=== PATIENT | female | born 1985 | race Caucasian/White ===

== ENCOUNTER 2017-03-23 15:34 | Outpatient (CLI) | payer MEDICARE, OTHER ==
--- NOTE | 2017-03-23 19:16 | RAD ---
THREE VIEWS OF THE LUMBAR SPINE 03/23/17 COMPARISON: 03/05/17 HISTORY: Status post lumbar spine surgery. FINDINGS: Postsurgical clips in right upper quadrant suggest prior cholecystectomy. Bilateral L5 and S1 pedicle screws are present with vertically oriented interlocking rods. There is an intervertebral disc device at the lumbosacral junction. There is anterolisthesis or L5 on S1 sunitha uring approximately 1.7 cm, not significantly changed. No acute osseous abnormality is seen. IMPRESSION: Stable postoperative changes within the lumbar spine. Stable 1.7 cm anterolisthesis of L5 on S1. POS: SUHAS
== END 2017-03-23 15:35 | disposition home or self-care (01) ==
LOC: TBSIIMAG 15:34
PROVIDERS: ATTEND Neurological Surgery
DX: M51.36 Other intervertebral disc degeneration, lumbar region (principal); M43.16 Spondylolisthesis, lumbar region; Z98.890 Other specified postprocedural states
CPT/HCPCS: 72100

== ENCOUNTER 2017-08-31 15:00 | Outpatient (CLI) | payer OTHER | END 2017-08-31 15:01 | disposition home or self-care (01) | LOC: BICRAD 15:00 | PROVIDERS: ATTEND Nurse Practitioner Family | DX: M47.816 Spondylosis without myelopathy or radiculopathy, lumbar region; M43.17 Spondylolisthesis, lumbosacral region; Z98.890 Other specified postprocedural states | CPT/HCPCS: 72100 ==

== ENCOUNTER 2018-09-01 15:27 | Outpatient (CLI) | payer OTHER | END 2018-09-01 15:28 | disposition home or self-care (01) | LOC: DTY/OP 15:27 | PROVIDERS: ATTEND Specialist | DX: Z01.818 Encounter for other preprocedural examination (principal); E66.01 Morbid (severe) obesity due to excess calories | CPT/HCPCS: 97802 ==

== ENCOUNTER 2018-10-07 11:00 | Inpatient (IN) | payer MEDICARE ==
[2018-10-06 15:30] VITALS: BMI 38.4
--- NOTE | 2018-10-06 22:04 | HP ---
HISTORY OF PRESENT ILLNESS: Sheela Moser is a 33-year-old female, scheduled for laparoscopic gastric bypass. She has reflux and sleeve is not appropriate. She has been through our bariatric seminar, seen our baby formula mixer and psychologist, and is felt to be an excellent candidate. She has a history of PTSD, anxiety, arthralgias, elevated cholesterol, and GERD. She is in need of bilateral knee replacement due to osteoarthritis. Hopefully, she can postpone this. She is currently taking levothyroxine, ropinirole, Lyrica, omeprazole, ranitidine, atorvastatin, and hydroxyzine. She understands the risks and benefits of procedure and consents. She has had EGD at [facility] in the recent months that was unremarkable. There is no history of a hiatal hernia. PAST SURGICAL HISTORY: Septoplasty, cholecystectomy, L5-S1 fusion in 2016, tubal ligation. Of note, I removed her gallbladder 15 to 16 years ago. PAST MEDICAL HISTORY: As noted above, depression; PTSD; GERD; anxiety; elevated cholesterol; osteoarthritis; history of peptic ulcer disease, on PPIs; history of reflux, on PPIs. The patient is seen by Dr. Whitehead and endorsed from Psychology as an appropriate candidate. She has seen her dietitian. She has seen her tools administrator and felt to be a good candidate without further evaluation necessary. Her echocardiogram from 09/22/2018 revealed normal LV function, 60% to 65% EF, mild tricuspid and mitral valve regurg, otherwise unremarkable. She was asymptomatic. EKG was normal. PHYSICAL EXAMINATION: VITAL SIGNS: Height 5 feet 2 inches, 210 pounds, 38 BMI. Blood pressure 116/69, pulse 76, temperature 98 degrees. HEAD, EYES, EARS, NOSE, AND THROAT: Unremarkable. LUNGS: Clear to auscultation. CARDIAC: Regular rate and rhythm without murmur or gallop. ABDOMEN: Soft and nontender. EXTREMITIES: Unremarkable. ASSESSMENT AND PLAN: Morbid obesity, 39 BMI on presentation, 214 pounds; currently 210 pounds, 38 BMI. She is compliant and endorses an appropriate candidate for laparoscopic gastric bypass. Risks and benefits have been reviewed. Questions answered. Job ID: [id number]
[2018-10-12] MEDS ORDERED: cefOXitin 2 GM VIAL ONE (06:21)
[2018-10-12] MEDS ORDERED: Sodium Chloride 0.9% 100 ML ONE (06:22)
[2018-10-12] MEDS ORDERED: Heparin 5,000 UNITS/ML VIAL ONE (06:22)
[2018-10-12] MEDS ORDERED: Scopolamine 1.5 mg/72 hour Patch ONE (06:23)
[2018-10-12] MEDS ORDERED: Ketorolac Tromethamine 30 MG/ML VIAL ONE (06:23)
[2018-10-12] MEDS ORDERED: Bupivacaine/Epinephrine 0.25% 30 ML VIAL ONE (06:39)
[2018-10-12] MEDS ORDERED: Fentanyl 100 MCG/2 ML VIAL ONE ×4 (07:19→12:03)
[2018-10-12] MEDS ORDERED: Midazolam HCl 2 mg/2 ml Vial ONE (07:31)
[2018-10-12] MEDS ORDERED: Ondansetron HCl/PF 4 MG/2 ML Vial IVP PRN (11:18)
[2018-10-12] MEDS ORDERED: Promethazine HCl 25 MG/ML VIAL SLOW IVP PRN (11:18)
[2018-10-12] MEDS ORDERED: Meperidine HCl/PF 25 MG/ML VIAL SLOW IVP PRN (11:18)
[2018-10-12] MEDS ORDERED: Promethazine HCl 25 MG/ML VIAL IM PRN (11:18)
[2018-10-12] MEDS ORDERED: Meperidine HCl/PF 25 MG/ML VIAL ONE (11:22)
[2018-10-12] MEDS ORDERED: diphenhydrAMINE 50 MG/ML VIAL IVP PRN (11:46)
[2018-10-12] MEDS ORDERED: hydrALAZINE 20 MG/ML VIAL SLOW IVP PRN (11:46)
[2018-10-12] MEDS ORDERED: Morphine 2 MG/ML SYRINGE SLOW IVP PRN (11:46)
[2018-10-12] MEDS ORDERED: Morphine 4 MG/ML VIAL SLOW IVP PRN (11:46)
[2018-10-12] MEDS ORDERED: clonazePAM 1 MG TAB PO PRN (11:51)
[2018-10-12] MEDS ORDERED: Sodium Chloride 0.9% (PF) 10 ML VIAL FS PRN (11:58)
--- NOTE | 2018-10-12 12:39 | OP ---
DATE OF PROCEDURE: 10/12/2018 PREOPERATIVE DIAGNOSES: Elevated cholesterol, gastroesophageal reflux disease, morbid obesity, 210 pounds and 38 BMI. POSTOPERATIVE DIAGNOSES: Elevated cholesterol, gastroesophageal reflux disease, morbid obesity, 210 pounds and 38 BMI. PROCEDURE PERFORMED: Laparoscopic Maureen-en-Y gastric bypass. ANESTHESIA: General. PARTS COUNTERMAN: Dr. Patel. Note, apex of the spleen superiorly. Small amount of bleeding, 4 to 500 mL controlled with Surgicel, Dory, and pressures. DESCRIPTION OF PROCEDURE: The patient was taken to the operating room, where under general anesthesia, abdomen was prepared with ChloraPrep and draped in routine fashion. Local anesthetic, 0.25% Marcaine with epinephrine, 60 mL volume, total volume used to infiltrate into the skin and subcutaneous tissue about each port site. Infraumbilical incision was made, pneumoperitoneum to 15 mmHg obtained with a Veress needle, replaced with a 5 port and laparoscope inserted. Bilateral far-lateral subcostal incision made and 5 port was placed. Left upper midclavicular abdominal incision was made. A 15-port placed on the left, 12-port placed on the right and a subxiphoid incision was made and Bayron liver retractor applied to flex the left lobe of the liver anteriorly. The omentum taken down split to the left of the falciform up to the transverse colon, reflected cephalad. Approximately, 25 cm from the ligament of Treitz, small bowel was divided with a STEPHEN white load stapler. Mesentery was tied the STEPHEN white load stapler. Hemostasis was gained with the cautery and clips, and Maureen limb devascularized about 4 cm and then measured to 100 cm length and then jejunojejunostomy between the biliary limb and Maureen limb proximally with a single fire of the STEPHEN white load stapler. A common enterotomy closed with 3 fires of the STEPHEN white load stapler. Mesenteric defect closed with 3-0 Vicryl [id number] sutures. Maureen limb was then carefully marched out from the jejunojejunostomy out to the devascularized Maureen limb, which had been devascularized about 4 cm using the LigaSure. This was then placed cephalad and the omentum reflected caudally and the patient placed in the reverse Trendelenburg position. Gastrohepatic ligament taken down adjacent to the lesser curvature and the lesser sac entered, and as all monitor instruments removed from the stomach, single fire of the STEPHEN blue load 45 cm stapler fired transversely for 4 to 5 cm from the gastroesophageal junction. Once this was completed, a gastrotomy was made and a 25 mm EEA stapler anvil placed, attached to a suture through the gastrotomy up to the gastric pouch. After the attached suture passed through a band passer 5 mm, passed in through the gastrotomy and directed up to the initially fired staple line in the stomach. Once this was in proper position at adjacent staple line, a small opening was made with the cutting current cautery. I then passed the anvil out grasping the suture, removing the anvil pulling the anvil out through the gastric pouch. At this point, the gastrotomy was closed with 2 fires of the STEPHEN blue load stapler. Stomach was then partitioned cephalad to the patient's left about angle of His with single serial fire of the blue load stapler. In doing so, there was small bowel bleeding from the apex of the spleen, this was controlled with cautery, Surgicel and a Ray-Roney gauze pressure applied held for 5 minutes and good hemostasis noted. The Ray-Roney left in place at this time. At this point, the Maureen limb was then opened along the devascularized segment antimesenteric and a 35 mm EEA stapler applied, advanced to the antimesenteric border of the small bowel advancing the anvil out of the small bowel and advancing the post of the antimesenteric small bowel and attaching it to the anvil. This was then approximated within the torque fire range and the anastomosis was completed, loosening the anvil, removing the stapler. Good anastomosis was palpated. Devascularized segment of the Maureen limb then divided with a STEPHEN white load stapler and removed. Then, we placed 3 sutures of 3-0 Vicryl seromuscular proximally jejunum to the gastric wall, left posterolateral, left anterolateral, and right anterolateral. Once this was completed, Anesthesia placed an OG tube, placed into the gastric pouch, visualized laparoscopically. Filled the gastrojejunostomy with air, placed an intestinal clamp on the intestinal outlet noting absence of any leak. Good hemostasis noted. At this point, attention was then turned to the spleen. This area was irrigated. Good hemostasis was noted. The Ray-Roney was removed. Dory sprayed around the splenic tip and another Surgicel applied and good hemostasis noted. Irrigant removed, aspirated, and a 15 mm port site closed with [id number] sutures of 0 Vicryl, GraNee needle, and transabdominal wall fixation. Irrigant and pneumoperitoneum were evacuated. All instruments were removed after the liver retractor was removed and good hemostasis noted, and all skin incisions were approximated with subdermal 4-0 Monocryl and [place] glue applied. The patient tolerated the procedure well. Job ID: [id number]
[2018-10-12] MEDS ORDERED: Dexamethasone 20 MG/5 ML VIAL ONE (13:37)
[2018-10-12] MEDS ORDERED: Glycopyrrolate 0.2 MG/ML 5 ML SYRINGE ONE (13:37)
[2018-10-12] MEDS ORDERED: Rocuronium Bromide 10 MG/ML (10ML VIAL) ONE (13:37)
[2018-10-12] MEDS ORDERED: Ondansetron PF 4 MG/2 ML Vial ONE (13:37)
[2018-10-12] MEDS ORDERED: PROPOFOL 200 MG/20 ML VIAL ONE (13:37)
[2018-10-12 15:59] LABS: #Lymphocytes 0.5 thou/uL (1.20-3.40); #Monocytes 0.1 thou/uL (0.11-0.59); #Neutrophils 12.1 thou/uL (1.40-6.50); %Lymphocytes 4.2 % (21.0-51.0); %Monocytes 1.1 % (0.0-10.0); %Neutrophils 94.7 % (42.0-75.0); Hemoglobin 12.4 g/dL (12.0-16.0); Mean Corpuscular HGB CONC 33.8 g/dL (32.0-36.0); Mean Corpuscular Hemoglobin 30.7 pg (27.0-31.0); Mean Corpuscular Volume 90.8 fL (78.0-98.0); Mean Platelet Volume 7.5 fL (7.4-10.4); Platelet Count 299 thou/uL (130-400); RBC Distribution Width 11.4 % (11.5-14.5); Red Blood Cell (RBC) Count 4.05 mill/uL (4.20-5.40); White Blood Cell (WBC) Count 12.8 thou/uL (4.8-10.8)
[2018-10-12] MEDS: Acetaminophen 1,000 MG in Premix Bag 1 BAG IVPB SCH ×2 (16:00→16:08)
[2018-10-12] MEDS: Ketorolac Tromethamine 30 MG/ML VIAL IVP SCH ×2 (16:00→17:07)
[2018-10-12] MEDS: Lactated Ringer's 1,000 ML IV SCH ×2 (16:01→20:39)
[2018-10-12] MEDS: Hydrocodone-Acetamin 15 ML UDCUP PO PRN ×2 (16:08→20:37)
[2018-10-12 20:11] LABS: #Lymphocytes 0.7 thou/uL (1.20-3.40); #Monocytes 0.3 thou/uL (0.11-0.59); #Neutrophils 10.7 thou/uL (1.40-6.50); %Basophils 0.2 % (0.0-1.0); %Eosinophils 0.2 % (0.0-10.0); %Lymphocytes 5.9 % (21.0-51.0); %Monocytes 2.4 % (0.0-10.0); %Neutrophils 91.3 % (42.0-75.0); Hemoglobin 11.5 g/dL (12.0-16.0); Mean Corpuscular HGB CONC 33.6 g/dL (32.0-36.0); Mean Corpuscular Hemoglobin 30.6 pg (27.0-31.0); Mean Corpuscular Volume 91.1 fL (78.0-98.0); Mean Platelet Volume 7.6 fL (7.4-10.4); Platelet Count 278 thou/uL (130-400); RBC Distribution Width 11.3 % (11.5-14.5); Red Blood Cell (RBC) Count 3.75 mill/uL (4.20-5.40); White Blood Cell (WBC) Count 11.7 thou/uL (4.8-10.8)
[2018-10-12] MEDS ORDERED: rOPINIRole HCl 1 MG TAB PO SCH (21:00)
[2018-10-13] MEDS: Acetaminophen 1,000 MG in Premix Bag 1 BAG IVPB SCH ×2 (00:15→05:24)
[2018-10-13] MEDS: Ondansetron PF 4 MG/2 ML Vial IVP PRN ×3 (00:16→16:42)
[2018-10-13] MEDS: Ketorolac Tromethamine 30 MG/ML VIAL IVP SCH ×3 (00:16→12:16)
[2018-10-13] MEDS: Lactated Ringer's 1,000 ML IV SCH ×2 (05:24→17:37)
[2018-10-13 06:26] LABS: #Lymphocytes 1.8 thou/uL (1.20-3.40); #Monocytes 0.5 thou/uL (0.11-0.59); #Neutrophils 6.9 thou/uL (1.40-6.50); %Basophils 0.2 % (0.0-1.0); %Eosinophils 0.2 % (0.0-10.0); %Lymphocytes 19.5 % (21.0-51.0); %Monocytes 5.6 % (0.0-10.0); %Neutrophils 74.5 % (42.0-75.0); Hemoglobin 10.1 g/dL (12.0-16.0); Mean Corpuscular HGB CONC 34.1 g/dL (32.0-36.0); Mean Corpuscular Hemoglobin 30.8 pg (27.0-31.0); Mean Corpuscular Volume 90.3 fL (78.0-98.0); Mean Platelet Volume 7.9 fL (7.4-10.4); Platelet Count 264 thou/uL (130-400); RBC Distribution Width 11.3 % (11.5-14.5); Red Blood Cell (RBC) Count 3.29 mill/uL (4.20-5.40); White Blood Cell (WBC) Count 9.3 thou/uL (4.8-10.8)
[2018-10-13 06:47] LABS: Anion Gap 11 mmol/L (10-20); BUN (Urea Nitrogen) 5 mg/dL (7.0-18.7); Calc. Creatinine Clearance 199 mL/min (70-130); Calcium 8.4 mg/dL (7.8-10.44); Carbon Dioxide 25 mmol/L (22-29); Chloride 109 mmol/L (98-107); Estimated GFR-MDRD Greater than 90; Glucose 113 mg/dL (70-105); Potassium 3.6 mmol/L (3.5-5.1); Sodium 141 mmol/L (136-145)
[2018-10-13] MEDS ORDERED: Pantoprazole 40 MG VIAL IVP SCH (09:00)
[2018-10-13] MEDS ORDERED: Enoxaparin Sodium 40 MG/0.4 ML SYRINGE SC SCH (09:00)
[2018-10-13] MEDS: Hydrocodone-Acetamin 15 ML UDCUP PO PRN ×2 (09:16→16:42)
[2018-10-13 11:35] VITALS: BP 97/56; TEMP 98.1
[2018-10-13] MEDS ORDERED: Acetaminophen 650 MG/20.3 ML UDCUP PO PRN (13:21)
--- NOTE | 2018-10-13 14:38 | PRG ---
DATE OF SERVICE: 10/13/2018 Sheela Moser is doing well, status post laparoscopic Maureen-en-Y gastric bypass. She did have some bleeding from the apex of the spleen, controlled with pressure and hemostatic agents. Postoperatively, her hemoglobin was checked and fell from 12 to 10.1. She has remained hemodynamically stable. She is tolerated her diet. Plan is to discharge home to resume her home medications including ropinirole, Klonopin, Trintellix, ranitidine, Lyrica, omeprazole, levothyroxine, Lipitor, cholecalciferol, p.r.n. Zofran, Tylenol elixir if that will suffice. Activity as tolerated. No lifting restrictions. Diet, advance as per protocol, bariatric clears, advance to pureed and GI soft per protocol post bariatric surgery. The patient will follow up in my office in 2 to 3 weeks. Job ID: [id number] MTDD
--- NOTE | 2018-10-14 03:26 | DIS ---
DATE OF ADMISSION: 10/12/2018 DATE OF DISCHARGE: 10/13/2018 DISCHARGE DIAGNOSES: Morbid obesity, Maureen-en-Y gastric bypass performed in this hospitalization. [place] of the spleen oozing intraoperatively, controlled with pressure and hemostatic agents. Admission hemoglobin 12. Discharge hemoglobin 10.1. Vital signs stable. The patient will continue her PPIs. DIET: Continue bariatric liquids and advance diet per protocol. ACTIVITY: No lifting restriction. Shower and bathe whenever. MEDICATIONS: Resume her home medications. Lortab elixir prescribed. FOLLOWUP: Follow up in my office in about 2 weeks. Job ID: [id number]
--- NOTE | 2018-10-14 05:59 | PQF ---
[employer] Carrier Driver Crystal Reports Winform Viewer DINESH NESBITT RICHARD D MD [id number] SURG [id number] CLINICAL DOCUMENTATION CLARIFICATION FORM: POST DISCHARGE Addendum to original discharge summary date: ____ Late entry note date: __ DATE: 10-14-2018 ATTN: Dov Kent Please exercise your independent, professional judgment in responding to the clarification form. Clinical indicators are provided on the bottom of this form for your review Can you please specify if the bleeding of the spleen is a perioperative complication. Please check appropriate box(s): [YES ] bleeding from the apex of the spleen is an incidental occurrence inherent in the surgical procedure [ ] bleeding from the apex of the spleen is a complication of the procedure [ ] Other [ ] Unable to determine [ ] Other diagnosis please specify: [ ] Unable to determine CLINICAL INDICATORS: Op note 10/[address] Willard Note, apex of the spleen superiorly, small amount of bleeding, 4 to 500 ml controlled with surgical, Dory,and pressures PN 10/[address] Willard Postoperatively her hemoglobin was checked and fell from 12 to 10.1. She has remained hemodynamically stable DS 10/[address] Willard Morbid Obesity, Maureen-en-Y gastric bypass performed in this hospitalization. [place] of the spleen oozing intraoperatively, controlled with pressure and hemostatic agents RISK FACTORS: Op note by Dr. Willard- Laparoscopic Maureen-en-Y gastric bypass Op note by Dr. Willard- Morbid Obesity BMI 38 TREATMENT: Op note by Dr. Willard 10/12- controlled with cautery, Surgicel, Dory and a Ray-Roney gauze pressure applied held for 5 minutes and good hemostasis noted Bupivacaine with epinephrine 30 ml -MAR 10/12. No postop hemodynamic compromise & no signicant drop in hemoglobin & no transfusion. (This form is maintained as a part of the permanent medical record) 2015 [employer] All Rights Reserved Annemarie [email or web address] [not provided] MTDD
== END 2018-10-13 17:12 | disposition home or self-care (01) | DRG 621 ==
LOC: SURG A 10-12 05:53 → SURG B 10-12 12:48 → SURG A 10-12 17:02 → SURG B 10-12 17:18
PROVIDERS: ADMIT Specialist; ATTEND Specialist
PROC: 0D164ZA Bypass Stomach to Jejunum, Percutaneous Endoscopic Approach (ICD-10-PCS; principal; 2018-10-12)
DX: E66.01 Morbid (severe) obesity due to excess calories (principal); E78.00 Pure hypercholesterolemia, unspecified; K21.9 Gastro-esophageal reflux disease without esophagitis; Z68.38 Body mass index [BMI] 38.0-38.9, adult; Z88.8 Allergy status to other drugs, medicaments and biological substances
CPT/HCPCS: 36415; 80048; 85025; 86850; 86900; 86901; C9113; J0131; J0694; J1100; J1644; J1650; J1885; J2175; J2250; J2270; J2405; J2704; J3010; J3490

== ENCOUNTER 2018-10-16 02:52 | Inpatient (IN) | payer MEDICARE, OTHER ==
[2018-10-16 03:23] LABS: Bilirubin Negative (Negative); Blood, Urine Negative (Negative); Clarity CLEAR (Clear); Glucose, Urine (Dipstick) Negative (Negative); Leukocyte Negative (Negative); Nitrite Negative (Negative); Protein, Urine (Dipstick) Negative (Neg-Trace); Specific Gravity, Urine 1.013 (1.002-1.036); pH, Urine 8.5 (5.0-9.0)
[2018-10-16] MEDS ORDERED: Morphine 4 MG/ML VIAL ONE (03:23)
[2018-10-16] MEDS ORDERED: Ondansetron PF 4 MG/2 ML Vial ONE ×4 (03:23→12:03)
[2018-10-16 03:49] LABS: #Eosinphils 0.1 thou/uL (0.0-0.7); #Lymphocytes 0.8 thou/uL (1.20-3.40); #Monocytes 0.3 thou/uL (0.11-0.59); #Neutrophils 8.9 thou/uL (1.40-6.50); %Basophils 0.3 % (0.0-1.0); %Eosinophils 0.5 % (0.0-10.0); %Lymphocytes 7.6 % (21.0-51.0); %Monocytes 2.6 % (0.0-10.0); Hemoglobin 10.6 g/dL (12.0-16.0); Mean Corpuscular HGB CONC 33.9 g/dL (32.0-36.0); Mean Corpuscular Hemoglobin 30.5 pg (27.0-31.0); Mean Platelet Volume 7.6 fL (7.4-10.4); Platelet Count 321 thou/uL (130-400); RBC Distribution Width 11.2 % (11.5-14.5); Red Blood Cell (RBC) Count 3.49 mill/uL (4.20-5.40)
[2018-10-16 04:14] LABS: ALT (SGPT) 67 U/L (8-55); AST (SGOT) 54 U/L (5-34); Albumin 3.2 g/dL (3.5-5.0); Anion Gap 14 mmol/L (10-20); BUN (Urea Nitrogen) 7 mg/dL (7.0-18.7); Bilirubin, Total 0.7 mg/dL (0.2-1.2); Calc. Creatinine Clearance 0 mL/min (70-130); Calcium 8.2 mg/dL (7.8-10.44); Carbon Dioxide 17 mmol/L (22-29); Chloride 108 mmol/L (98-107); Estimated GFR-MDRD Greater than 90; Globulin 2.2 g/dL (2.4-3.5); Glucose 118 mg/dL (70-105); Lipase 9 U/L (8-78); Potassium 3.3 mmol/L (3.5-5.1); Protein, Total 5.4 g/dL (6.0-8.3); Sodium 136 mmol/L (136-145)
[2018-10-16] MEDS ORDERED: Fentanyl 100 MCG/2 ML VIAL ONE ×3 (04:17→07:40)
[2018-10-16 04:20] LABS: Alkaline Phosphatase 102 U/L (40-150)
[2018-10-16] MEDS ORDERED: Piperacillin/Tazobactam 4.5 GM VIAL ONE (04:32)
[2018-10-16] MEDS ORDERED: Sodium Chloride 0.9% 100 ML ONE (04:32)
[2018-10-16] MEDS ORDERED: Bupivacaine HCl 0.5%/Epinephrine 1:200,000/PF 30 ml Vial ONE (04:53)
[2018-10-16] MEDS ORDERED: Bupivacaine/Epinephrine 0.25% 30 ML VIAL ONE (04:53)
[2018-10-16] MEDS ORDERED: Midazolam HCl 2 mg/2 ml Vial ONE (05:23)
[2018-10-16] MEDS ORDERED: Meperidine HCl/PF 25 MG/ML VIAL ONE (07:31)
[2018-10-16] MEDS ORDERED: Dexamethasone 4 mg/ml Vial ONE (07:36)
[2018-10-16] MEDS ORDERED: hydrALAZINE 20 MG/ML VIAL SLOW IVP PRN (07:36)
[2018-10-16] MEDS ORDERED: diphenhydrAMINE 50 MG/ML VIAL IVP PRN ×2 (07:36→08:01)
[2018-10-16] MEDS ORDERED: HYDROmorphone 2 MG/ML VIAL SLOW IVP PRN (07:42)
[2018-10-16] MEDS ORDERED: Promethazine HCl 25 MG/ML VIAL IM PRN ×2 (07:42→08:01)
[2018-10-16] MEDS ORDERED: Promethazine HCl 25 MG/ML VIAL SLOW IVP PRN (07:42)
[2018-10-16] MEDS ORDERED: Ondansetron HCl/PF 4 MG/2 ML Vial IVP PRN (07:42)
[2018-10-16] MEDS ORDERED: Meperidine HCl/PF 25 MG/ML VIAL SLOW IVP PRN (07:42)
[2018-10-16] MEDS ORDERED: Ondansetron PF 4 MG/2 ML Vial IVP PRN ×2 (07:43→08:01)
[2018-10-16] MEDS ORDERED: Ondansetron ODT 8 MG TAB SL PRN (07:43)
[2018-10-16] MEDS ORDERED: Acetaminophen 1,000 MG in Premix Bag 1 BAG IVPB SCH (07:45)
--- NOTE | 2018-10-16 07:55 | HP ---
HISTORY OF PRESENT ILLNESS: Sheela Moser is a 33-year-old female presents to the emergency room, 10/16/2018 after undergoing 10/12/2018 routine laparoscopic gastric bypass. The patient's gastric bypass went well, although she did have some bleeding from the apex of the spleen, requiring a Ray-Roney to be entered and pressure held and hemostatic agents applied. Postoperatively, the patient was discharged home 10/13/2018. Her hemoglobin had dropped from 12.4 to 10.1 by discharge, but today it is 10.6. The patient was sent home on Lortab Elixir, on bariatric clear liquids. She reports that she had expected postoperative pain, but last night her pain became more severe and she developed vomiting. She presented to the emergency room. Dr. Polk evaluated her. Her white count is 10, hemoglobin 10.6. Her differential is unremarkable. Sodium 136, potassium 3.3, carbon dioxide 17, creatinine 0.53. Her respiratory rate is 16 to 18, heart rate 68 to 72, blood pressure 120/68. The patient underwent a CAT scan of her abdomen and pelvis, read by [facility] and the report reads that there is an 8 x 3 x 3 cm fluid collection within the left upper quadrant perisplenic region compatible with an anastomotic breakdown in this patient and a leak. There is significant stool in the colon. There is dilatation of the jejunal limb/Maureen limb measuring up to 4 cm with wall thickening suggesting possible obstruction is read out. The patient was noted to have significant constipation. ALLERGIES: REGLAN SOCIAL HISTORY: Tobacco, none. Alcohol, none. PAST MEDICAL HISTORY: PTSD, GERD, anxiety, elevated cholesterol, osteoarthritis, peptic ulcer disease and reflux on PPI, history of prior gastric bypass. She had preoperative cardiac assessment that was normal, normal EF. PAST SURGICAL HISTORY: Septoplasty, cholecystectomy, L5-S1 fusion, tubal ligation (I had performed a cholecystectomy 15 years ago). REVIEW OF SYSTEMS: Noncontributory. PHYSICAL EXAMINATION: VITAL SIGNS: Respiratory rate 18, blood pressure 125/68, heart rate 72. HEAD, EARS, EYES, NOSE, AND THROAT: Unremarkable. LUNGS: Clear to auscultation. CARDIAC: Regular rate and rhythm without murmur or gallop. ABDOMEN: Soft. Well-healed laparoscopic incisions. Tenderness in the left upper quadrant with mild guarding. EXTREMITIES: Unremarkable. ASSESSMENT AND PLAN: 1. Post gastric bypass with pain. CAT scan does not show definitive leak. There is no extraluminal contrast; however, there is some fluid collection and some thick thickening of the Maureen limb. Due to her sudden onset of pain last night and her discomfort now, plan would be for a diagnostic laparoscopy, and procedure is indicated. Would place a central line. Would hydrate her. If she is demonstrated to have a leak, would plan placement of a G-tube in her gastric remnant and a drain. 2. Other medical problems as noted above. Job ID: [id number]
--- NOTE | 2018-10-16 07:57 | RAD ---
PORTABLE CHEST: HISTORY: Central line. Patient in PACU. FINDINGS: The lungs are clear. The heart and mediastinum are unremarkable for this projection. A central line appears to have been placed through the left subclavian. This line crosses the midlin e and the tip of the line overlies the right upper chest, presumably within the right subclavian vein . No pneumothorax or acute process. IMPRESSION: Central line crosses the midline and overlies the right upper chest, presumably within the right subc lavian vein. POS: OFF
[2018-10-16] MEDS ORDERED: Bisacodyl 10 MG SUPP PR SCH (08:00)
[2018-10-16] MEDS ORDERED: HYDROmorphone 2 MG/ML VIAL ONE (08:00)
[2018-10-16] MEDS ORDERED: fentaNYL Citrate/PF 2,000 MCG in Sodium Chloride 0.9% 60 ML IV PRN (08:01)
[2018-10-16] MEDS ORDERED: Zolpidem Tartrate 5 MG TAB PO PRN (08:01)
[2018-10-16] MEDS ORDERED: diphenhydrAMINE 50 MG/ML VIAL IM PRN (08:01)
[2018-10-16] MEDS ORDERED: Ketorolac Tromethamine 30 MG/ML VIAL IVP PRN (08:01)
[2018-10-16] MEDS ORDERED: diphenhydrAMINE 25 MG CAP PO PRN (08:01)
[2018-10-16] MEDS ORDERED: Naloxone HCl 0.4 mg/ml Vial IV PRN (08:01)
[2018-10-16] MEDS ORDERED: Communication Order-Pharmacy FS SCH (08:15)
--- NOTE | 2018-10-16 08:28 | CT ---
PRELIMINARY REPORT/[facility]/EMERGENTY AFTER-HOURS PROCEDURE CT Abdomen and Pelvis With Contrast EXAM DATE/TIME: 10/16/2018 3:47 AM CLINICAL HISTORY: 33 years old, female; Prior surgery; Patient HX: Er 5. PT presents to ED with report of abdominal nick n started tonight at 9pm with vomiting. PT reports had gastric bypass this past Wednesday. PT report pain since surgery reports worsening pain tonight. PT endorses pain to llq. PT has not had bowel movement since 2 days prior to surgery, per PT. Surgical history of cholecystectomy, laparoscop ic, tubal ligation. Gastric bypass 10/12/18; Additional info: *limited oral contrast, 100 ml of oral contrast used* TECHNIQUE: Imaging protocol: Axial computed tomography images of the abdomen and pelvis with intravenous contras t. Coronal reformatted images were created and reviewed. COMPARISON: No relevant prior studies available. FINDINGS: Pleural space: There is small LEFT pleural effusion. ABDOMEN: Liver: There are no focal liver lesions identified. Gallbladder and bile ducts: There has been a cholecystectomy. Pancreas: The pancreas appears normal. No ductal dilatation. Spleen: The spleen is normal. Adrenals: Normal. No mass. Kidneys and ureters: The kidneys appear normal. No hydronephrosis. Stomach and bowel: Patient is post gastric bypass surgery. There is an 8 x 3 x 3 cm fluid collection within the LEFT upper quadrant/perisplenic region compatible with anastomotic breakdown in this patie nt post recent gastric bypass surgery. There is nonspecific dilatation of the jejunal limb which extends inferiorly from the gastrojejunostomy with dilatation measuring up to 4 cm and wall thickenin g. This may represent ileus or obstruction. There is mild stool burden within the colon. Appendix: No evidence of appendicitis. PELVIS: Bladder: The bladder is normal. Reproductive: The uterus is normal. ABDOMEN and PELVIS: Intraperitoneal space: There is a small amount of free pelvic fluid present. Bones/joints: Patient is post L5 S1 surgical fusion with screws and rods. Soft tissues: Unremarkable. Vasculature: Normal. No abdominal aortic aneurysm. Lymph nodes: Normal. No enlarged lymph nodes. IMPRESSION: 1. There is an 8 x 3 x 3 cm fluid collection within the LEFT upper quadrant/perisplenic region compat ible with anastomotic breakdown in this patient post recent gastric bypass surgery. 2. Possible anastomosed jejunal limb obstruction versus ileus as above. THIS REPORT CONTAINS FINDINGS THAT MAY BE CRITICAL TO PATIENT CARE. The findings were verbally commun icated via telephone conference with BARTOLOME ORTIZ at 4:18 AM CDT on 10/16/2018. The findings were acknowledged and understood. Thank you for allowing us to participate in the care of your patient. Dictated and Authenticated by: Keyshawn Agrawal MD 10/16/2018 4:20 AM Central Time ([place] & [place]) FINAL REPORT CT ABDOMEN AND PELVIS WITH IV CONTRAST AND WITH ORAL CONTRAST: There is an extraluminal fluid and gas collection in the left upper quadrant in the left hemidiaphra gm consistent with anastomotic leak with confined collection/abscess as noted on the preliminary repo rt. There is dilatation of the brad limb of the gastric bypass and the findings are suspicious for obstru ction at the jejunal-jejunal anastomosis. This was also described on the preliminary report. Small bowel beyond this jejunal-jejunal anastomosis is normal caliber. I am in agreement with the preliminary report. POS: OFF
[2018-10-16] MEDS ORDERED: PREGABALIN PO SCH (09:00)
[2018-10-16 09:34] VITALS: BMI 38.4
[2018-10-16] MEDS: Pregabalin 75 MG CAP PO SCH ×4 (10:10→21:41)
[2018-10-16] MEDS: Levothyroxine Sodium 88 MCG TAB PO SCH (10:10)
[2018-10-16] MEDS: Acetaminophen 1,000 MG in Premix Bag 1 BAG IVPB SCH ×2 (11:07→18:15)
[2018-10-16] MEDS: Enoxaparin Sodium 40 MG/0.4 ML SYRINGE SC SCH (11:07)
[2018-10-16] MEDS: Pantoprazole 40 MG VIAL IVP SCH (11:08)
[2018-10-16] MEDS ORDERED: Iopamidol 370 76% 50 ML VIAL FS ONE (11:18)
[2018-10-16] MEDS ORDERED: ISOVUE-370 76%-LOCM 1 ML ONE (11:18)
[2018-10-16] MEDS ORDERED: Ketorolac Tromethamine 30 MG/ML VIAL IVP SCH (12:00)
[2018-10-16] MEDS ORDERED: Lidocaine 1% PF 5 ML VIAL ONE (12:03)
[2018-10-16] MEDS ORDERED: Dexamethasone 20 MG/5 ML VIAL ONE (12:03)
[2018-10-16] MEDS ORDERED: Rocuronium Bromide 10 MG/ML (10ML VIAL) ONE (12:03)
[2018-10-16] MEDS ORDERED: Glycopyrrolate 0.2 MG/ML 5 ML SYRINGE ONE (12:03)
[2018-10-16] MEDS ORDERED: PROPOFOL 200 MG/20 ML VIAL ONE (12:03)
[2018-10-16] MEDS ORDERED: Succinylcholine Chloride 20 MG/ML 10 ml SYRINGE FS ONE (12:03)
--- NOTE | 2018-10-16 13:47 | OP ---
DATE OF PROCEDURE: 10/16/2018 PREOPERATIVE DIAGNOSIS: Abdominal pain, status post Maureen-en-Y gastric bypass with normal white count, hemoglobin, normal vital signs. CAT scan suggested a fluid collection in left upper quadrant, read out as possible leak, although not certain. POSTOPERATIVE DIAGNOSIS: Normal postoperative findings. PROCEDURE PERFORMED: Diagnostic laparoscopy with evaluation of the gastrojejunostomy and the jejunojejunostomy. Gastrojejunostomy anastomosis checked under water insufflating air through an orogastric tube properly placed across the gastrojejunal anastomosis. Methylene blue inserted. No evidence of extravasation. Jejunojejunostomy evaluated patent air pushed across it. #19 Gold KIMBER drain in left upper quadrant. ROTO GRAVURE PRESS OPERATOR: Hakeem Qureshi MD ANESTHESIA: General anesthesia, local of 0.25% Marcaine with epinephrine 60 mL. DESCRIPTION OF PROCEDURE: The patient was taken to the operating room, where under general anesthesia, abdomen was prepared with ChloraPrep and draped in routine fashion. Local anesthetic was infiltrated in the skin and subcutaneous tissue about all the old laparoscopic port sites. These were opened and a 5-mm port placed infraumbilical, 5-mm port placed left upper quadrant midclavicular and a 12-mm port placed in right upper quadrant subcostal and 5 ports placed, otherwise. Bayron liver tractor placed through a subxiphoid old port site and properly positioned reflecting the anterior lobe of the liver anteriorly and reflecting the left lobe of the liver anteriorly. There was scant amount of brownish fluid in the left upper quadrant consistent with Surgicel and Dory used for hemostasis for the splenic apex bleeding, but no evidence of enteric material noted. The gastrojejunostomy was visualized, inspected and anesthesia placed an orogastric tube visualized laparoscopically, placed across gastrojejunostomy visualized in the Maureen limb. Intestinal clamp was placed across the small bowel and it was insufflated with air and there was no leak under water. Methylene blue was then used to insufflate this and it was well distended without leakage. #19 Gold KIMBER drain placed in the left upper quadrant near the gastrojejunostomy and brought out through the old 5 port site, left lateral subcostal and secured with 3-0 nylon, Mastisol and OpSite dressing. Jejunojejunostomy was inspected. There was no evidence of ischemia. There was no evidence of leakage. The Maureen limb was slightly distended, but air was passed across it into the jejunal outflow. Abdominal cavity was irrigated and irrigant evacuated. Good hemostasis was noted. All skin incisions were approximated with interrupted subdermal 4-0 Monocryl and [place] glue applied. Job ID: [id number]
[2018-10-16] MEDS: rOPINIRole HCl 1 MG TAB PO SCH ×2 (20:44→21:54)
[2018-10-17] MEDS: Acetaminophen 1,000 MG in Premix Bag 1 BAG IVPB SCH ×3 (00:25→12:11)
[2018-10-17 04:29] LABS: #Eosinphils 0.2 thou/uL (0.0-0.7); #Lymphocytes 1.9 thou/uL (1.20-3.40); #Monocytes 0.5 thou/uL (0.11-0.59); %Basophils 0.4 % (0.0-1.0); %Lymphocytes 19.8 % (21.0-51.0); %Monocytes 5.3 % (0.0-10.0); %Neutrophils 72.5 % (42.0-75.0); Hemoglobin 9.1 g/dL (12.0-16.0); Mean Corpuscular HGB CONC 33.2 g/dL (32.0-36.0); Mean Corpuscular Hemoglobin 30.4 pg (27.0-31.0); Mean Corpuscular Volume 91.7 fL (78.0-98.0); Mean Platelet Volume 7.5 fL (7.4-10.4); Platelet Count 274 thou/uL (130-400); RBC Distribution Width 11.6 % (11.5-14.5); Red Blood Cell (RBC) Count 2.98 mill/uL (4.20-5.40); White Blood Cell (WBC) Count 9.6 thou/uL (4.8-10.8)
[2018-10-17 04:53] LABS: Anion Gap 10 mmol/L (10-20); BUN (Urea Nitrogen) 4 mg/dL (7.0-18.7); Calc. Creatinine Clearance 193 mL/min (70-130); Calcium 8.5 mg/dL (7.8-10.44); Carbon Dioxide 25 mmol/L (22-29); Chloride 109 mmol/L (98-107); Estimated GFR-MDRD Greater than 90; Glucose 118 mg/dL (70-105); Potassium 3.9 mmol/L (3.5-5.1); Sodium 140 mmol/L (136-145)
[2018-10-17] MEDS ORDERED: MD-Gastroview 120 ML BOT ONE (11:01)
--- NOTE | 2018-10-17 11:11 | RAD ---
Upper GI series single column: 10/17/2018 HISTORY: 33-year-old female with postoperative pain after Maureen-en-Y gastric bypass surgery. TECHNIQUE: Gastrografin was given by mouth during intermittent fluoroscopy, both upright and recumbent. Eventual ly, a total of 30 mL of Gastrografin was given. A 1 hour and 15 minute delayed KUB was also obtained. The findings were discussed with the surgeon, Dr. Qureshi. FINDINGS: Gastrografin first reaches the small gastric pouch, then reaches the air-filled, mildly dilated maureen limb. Later, it preferentially refluxes into the mildly-moderately dilated duodenum. There is narrowing at three-way anastomosis between the maureen limb, duodenum, and interference jejunal limb, such that there is delayed contrast opacification of the rest of the jejunum. However, on the delayed KUB, most of the contrast material has exited the Maureen limb, stomach, and duo denum, and fills the rest of the nondilated jejunum and ileum, and has reached the mid transverse colon. There is no evidence of leakage. IMPRESSION: 1. Status post Maureen-en-Y gastric bypass surgery. 2. No leakage. 3. Stenosis at the three-way anastomosis, With preferential reflux into the duodenum, and delayed pas albertina into the rest of the the efferent jejunum. 4. However, eventually, the above resolves. No major complication.
--- NOTE | 2018-10-17 11:18 | PDOC.GSPN ---
Surgery Progress Note: Subj - Subjective Patient reports: no new complaints, tolerating liquids well Surgery Progress Note: Obj - Vital signs Vital signs: Vital Signs - Most Recent Temp Pulse Resp BP Pulse Ox 98.2 F 66 16 89/59 L 96 10/17/18 03:57 10/17/18 03:57 10/17/18 03:57 10/17/18 03:57 10/17/18 03:57 - Physical Exam General: no distress Cardiovascular: regular rate and rhythm Respiratory: clear to auscultation Abdomen: soft, nondistended, appropriately tender Wound: healing well Surgery Progress Note: Results - Labs Result Diagrams: 10/17/18 04:20 10/17/18 04:20 Lab results: Laboratory Results - last 24 hr 10/17/18 10/17/18 04:20 04:20 WBC 9.6 RBC 2.98 L Hgb 9.1 L Hct 27.3 L MCV 91.7 MCH 30.4 MCHC 33.2 RDW 11.6 Plt Count 274 MPV 7.5 Neutrophils % 72.5 Lymphocytes % 19.8 L Monocytes % 5.3 Eosinophils % 2.0 Basophils % 0.4 Neutrophils # 7.0 H Lymphocytes # 1.9 Monocytes # 0.5 Eosinophils # 0.2 Basophils # 0.0 Sodium 140 Potassium 3.9 Chloride 109 H Carbon Dioxide 25 Anion Gap 10 BUN 4 L Creatinine 0.63 Estimated GFR (MDRD) Greater than 90 Glucose 118 H Calcium 8.5 Surgery Progress Note: A/P - Problem (1) Morbid obesity Current Visit: No Code(s): E66.01 - MORBID (SEVERE) OBESITY DUE TO EXCESS CALORIES Status: Acute - Plan Plan: Swallow normal -clear liquids -Leave [facility] for now. -likely home tomorrow
[2018-10-17] MEDS: Levothyroxine Sodium 88 MCG TAB PO SCH (11:21)
[2018-10-17] MEDS: Enoxaparin Sodium 40 MG/0.4 ML SYRINGE SC SCH (11:21)
[2018-10-17] MEDS: Pregabalin 75 MG CAP PO SCH ×3 (11:22→20:27)
[2018-10-17] MEDS: Pantoprazole 40 MG VIAL IVP SCH (11:23)
[2018-10-17] MEDS: D5 1/2 NS w/20 mEq KCL 1,000 ML IV SCH (12:11)
[2018-10-17] MEDS: rOPINIRole HCl 1 MG TAB PO SCH (20:47)
[2018-10-17] MEDS ORDERED: clonazePAM 1 MG TAB PO PRN (22:12)
[2018-10-17] MEDS ORDERED: Atorvastatin Calcium 20 MG TAB PO SCH (22:15)
[2018-10-17] MEDS ORDERED: Atorvastatin Calcium 40 MG TAB ONE (23:13)
[2018-10-17] MEDS ORDERED: Atorvastatin Calcium 20 MG TAB ONE (23:16)
[2018-10-18] MEDS: D5 1/2 NS w/20 mEq KCL 1,000 ML IV SCH (01:56)
[2018-10-18] MEDS ORDERED: Ondansetron ODT 4 MG TAB PO PRN (08:13)
[2018-10-18] MEDS ORDERED: Acetaminophen 650 MG/20.3 ML UDCUP PO PRN ×2 (08:13→08:15)
[2018-10-18] MEDS ORDERED: clonazePAM 1 MG TAB PO PRN ×2 (08:13→09:48)
[2018-10-18] MEDS ORDERED: Amoxicillin/Potassium Clav 500 MG TAB PO SCH ×2 (09:00)
[2018-10-18] MEDS ORDERED: Non-Formulary Item 1 EACH (Omeprazole [Omeprazole] 20 MG) PO SCH (09:00)
[2018-10-18] MEDS ORDERED: VORTIOXETINE HYDROBROMIDE PO SCH (09:00)
[2018-10-18] MEDS ORDERED: Non-Formulary Item 1 EACH (Cholecalciferol (Vitamin D3) [Vitamin D3] 1,000 UNIT) PO SCH (09:00)
[2018-10-18] MEDS: Levothyroxine Sodium 88 MCG TAB PO SCH (09:51)
[2018-10-18] MEDS: Enoxaparin Sodium 40 MG/0.4 ML SYRINGE SC SCH (09:52)
[2018-10-18] MEDS: Pregabalin 75 MG CAP PO SCH ×3 (09:52→20:24)
--- NOTE | 2018-10-18 10:22 | PRG ---
DATE OF SERVICE: 10/18/2018 SUBJECTIVE: Sheela Moser is doing well today. Her upper GI was normal yesterday. She is complaining of left upper quadrant pain, but no nausea or vomiting. She has been tolerating liquids since yesterday. Followup x-ray today reveals all the contrast Gastrografin to be in her colon. None has stagnated in her small bowel. She has had multiple bowel movements. OBJECTIVE: VITAL SIGNS: 98.3, 74, 99/65. LUNGS: Clear to auscultation. CARDIAC: Regular rate and rhythm without murmur or gallop. ABDOMEN: Soft and nontender except for minimal tenderness in left upper quadrant. LABORATORY DATA: Laboratories were normal yesterday, not repeated today. ASSESSMENT AND PLAN: Post bariatric surgery. No evidence of a leak. We will remove her drain today and plan discharge home later today or in the morning pending clinical course. Job ID: [id number]
--- NOTE | 2018-10-18 10:48 | RAD ---
SUPINE ABDOMEN: Date: 10/18/18 INDICATION: Abdominal pain. Follow-up upper GI performed yesterday. FINDINGS/IMPRESSION: Contrast now fills the entire colon. No significant residual small bowel contrast. There is mild gas- filled dilatation of several loops of small bowel in the mid abdomen. POS: OFF
[2018-10-18] MEDS: Hydrocodone-Acetamin 15 ML UDCUP PO PRN ×3 (11:10→20:23)
[2018-10-18] MEDS ORDERED: Famotidine 20 MG TAB PO SCH (21:00)
[2018-10-18] MEDS ORDERED: Non-Formulary Item 1 EACH (Ranitidine Hcl [Ranitidine Hcl] 150 MG) PO SCH (21:00)
[2018-10-18] MEDS ORDERED: Atorvastatin Calcium 20 MG TAB PO SCH ×2 (21:00)
[2018-10-18] MEDS: rOPINIRole HCl 1 MG TAB PO SCH (22:13)
[2018-10-19] MEDS: Hydrocodone-Acetamin 15 ML UDCUP PO PRN ×2 (00:42→08:04)
[2018-10-19 04:35] VITALS: BP 103/62; TEMP 98.4
[2018-10-19] MEDS: Pregabalin 75 MG CAP PO SCH (08:03)
[2018-10-19] MEDS: Levothyroxine Sodium 88 MCG TAB PO SCH (08:04)
[2018-10-19] MEDS: Enoxaparin Sodium 40 MG/0.4 ML SYRINGE SC SCH (08:04)
[2018-10-19] MEDS ORDERED: VORTIOXETINE HYDROBROMIDE PO SCH (09:00)
--- NOTE | 2018-10-19 09:39 | PRG ---
DATE OF SERVICE: 10/19/2018 SUBJECTIVE: Ms. Moser is doing well today. She is tolerating her bariatric liquids. Her progression for bariatric diet was reviewed with her. She is to be on bariatric liquids for 2 weeks, then move to purees, then soft foods per protocol. She has this information, has gone through this education at home. OBJECTIVE: VITAL SIGNS: Temperature 98.4 degrees, pulse 77, blood pressure 103/62. LUNGS: Clear to auscultation. CARDIAC: Regular rate and rhythm without murmur or gallop. ABDOMEN: Soft, nontender. Surgical wounds look good. Dressing over her old drain site present. LABORATORY DATA: None. ASSESSMENT AND PLAN: Doing well. She can be discharged home today. Lortab Elixir has been provided to use as needed. She will change this with Tylenol when that suffices. Diet and activity as tolerated. No lifting restrictions. Bariatric diet per protocol advancement. Follow up in my office for appointment in the next week or two. Job ID: [id number]
--- NOTE | 2018-10-20 01:50 | DIS ---
DATE OF ADMISSION: 10/16/2018 DATE OF DISCHARGE: 10/19/2018 DISCHARGE DIAGNOSES: 1. Abdominal pain post laparoscopic Maureen-en-Y gastric bypass. 2. Morbid obesity, 210 pounds, 38 BMI. 3. History of reflux. HISTORY: A 33-year-old female attended our bariatric seminar, went through the bariatric program and preoperative evaluation and then was admitted on the day of surgery after undergoing laparoscopic Maureen-en-Y gastric bypass. During that procedure, she had some bleeding at the apex of the spleen, controlled with pressure with Ray-Roney and hemostatic agents. Postoperatively, the patient was discharged home the next day with a stable hemoglobin and vital signs. She was discharged home on 10/13/2018. She reported to the emergency room on 10/16/2018, complaining of abdominal pain. In the emergency room, she had a CAT scan with contrast that revealed a fluid collection and radiologist read this out as a possible leak, although there was no extraluminal contrast. When I saw her, vital signs were stable. Her white count was normal. Her hemoglobin stable. Her abdominal exam revealed tenderness in the left upper quadrant. The remainder of the abdomen was soft. However, CAT scan did reveal some slight distention of her Maureen limb. Given these findings and her pain, which seemed to have acutely worsened even though it was appreciated that she did have constipation, the patient underwent laparoscopy. During that laparoscopy, the patient's orogastric tube was placed. This stomach distended with air and there was no evidence of leakage. Methylene blue was then used to distend the gastric pouch and gastrojejunostomy and again, there was no leakage. There was no evidence of inflammatory fluid. There was some Surgicel colored brownish fluid which was evacuated, but no inflammatory changes otherwise, the gastric remnant looked healthy. There was no bleeding. I then evaluated the Maureen limb. The Maureen limb was slightly distended, but looking at good jejunojejunostomy there when manipulated passed easily into the outlet jejunum. A drain was left in place. Postoperatively, she was monitored on that Wednesday and on Wednesday morning, she underwent a swallow study that demonstrated delayed emptying of the Maureen limb, but it did empty well on delayed films. Followup x-ray the next day revealed contrast to completely have evacuated the small bowel and upper GI tract and only lie in the colon. The patient had multiple bowel movements. The patient's hemoglobin remained stable. She was weaned from her [employer] to oral analgesics and is now discharged home to resume her home medications. She was given a prescription for Lortab elixir 240 mL. She will interchange this with Tylenol as able. She will resume her home medication, ropinirole 2 mg at bedtime, Klonopin 1 mg t.i.d. p.r.n., Trintellix daily, ranitidine at bedtime, Lyrica t.i.d., Zofran as needed, omeprazole 20 mg a day, levothyroxine 88 mcg a day, hydrocodone elixir as needed, vitamin D3, atorvastatin, acetaminophen as needed. Diet and activity as tolerated. Her drain and central line were removed prior to discharge. Job ID: [id number]
== END 2018-10-19 09:52 | disposition home or self-care (01) | DRG 941 ==
LOC: ERS 02:52 → SDC 06:01 → SURG A 07:36
PROVIDERS: ADMIT Specialist; ATTEND Specialist
PROC: 0WJP4ZZ Inspection of Gastrointestinal Tract, Percutaneous Endoscopic Approach (ICD-10-PCS; principal; 2018-10-16)
DX: G89.18 Other acute postprocedural pain (principal); Z98.84 Bariatric surgery status; K21.9 Gastro-esophageal reflux disease without esophagitis; E78.00 Pure hypercholesterolemia, unspecified; M19.90 Unspecified osteoarthritis, unspecified site; F43.10 Post-traumatic stress disorder, unspecified; E66.01 Morbid (severe) obesity due to excess calories; Z68.38 Body mass index [BMI] 38.0-38.9, adult
CPT/HCPCS: 36415; 71045; 74018; 74177; 74245; 80048; 80053; 81003; 83605; 83690; 85025; 94760; 96365; 96375; 96376; C9113; J0131; J0670; J1100; J1170; J1650; J2001; J2175; J2250; J2270; J2405; J2543; J2704; J3010; J3480; J3490; J7121; Q0163; Q9963; Q9966; Q9967; Q9968

== ENCOUNTER 2019-02-18 20:56 | Emergency (ER) | payer MEDICARE, OTHER ==
[~2019-02-18 20:56] MED LIST: ISOVUE-370 76%-LOCM 1 ML ONE; Iopamidol 370 76% 50 ML VIAL FS ONE
[2019-02-18] MEDS ORDERED: Morphine 4 MG/ML VIAL ONE ×2 (22:03→22:50)
[2019-02-18] MEDS ORDERED: Ondansetron PF 4 MG/2 ML Vial ONE ×2 (22:03→22:50)
[2019-02-18 22:08] LABS: Bacteria/HPF None Seen HPF (None Seen); Bilirubin Negative (Negative); Blood, Urine 3+ (Negative); Clarity Turbid (Clear); Glucose, Urine (Dipstick) Normal (Negative); Leukocyte 25 Leu/uL (Negative); Mucous/LPF 1+ LPF (<2+); Nitrite Negative (Negative); Protein, Urine (Dipstick) 70 mg/dL (Neg-Trace); RBC/HPF Greater than 50 HPF (0-3); Urobilinogen Normal mg/dL (Less than 2)
[2019-02-18 22:19] LABS: ALT (SGPT) 21 U/L (8-55); AST (SGOT) 16 U/L (5-34); Albumin 4.2 g/dL (3.5-5.0); Alkaline Phosphatase 154 U/L (40-150); Anion Gap 10 mmol/L (10-20); BUN (Urea Nitrogen) 17 mg/dL (7.0-18.7); Bilirubin, Total 0.4 mg/dL (0.2-1.2); Calc. Creatinine Clearance 0 mL/min (70-130); Calcium 9.6 mg/dL (7.8-10.44); Carbon Dioxide 20 mmol/L (22-29); Chloride 109 mmol/L (98-107); Estimated GFR-MDRD 80; Globulin 2.9 g/dL (2.4-3.5); Glucose 107 mg/dL (70-105); Potassium 3.4 mmol/L (3.5-5.1); Protein, Total 7.1 g/dL (6.0-8.3); Sodium 136 mmol/L (136-145)
[2019-02-18 22:25] LABS: #Basophils 0.1 thou/uL (0.0-0.2); #Eosinphils 0.1 thou/uL (0.0-0.7); #Lymphocytes 2.5 thou/uL (1.20-3.40); #Monocytes 0.7 thou/uL (0.11-0.59); %Basophils 0.5 % (0.0-1.0); %Eosinophils 0.9 % (0.0-10.0); %Lymphocytes 17.2 % (21.0-51.0); %Monocytes 4.6 % (0.0-10.0); %Neutrophils 76.8 % (42.0-75.0); Hemoglobin 13.7 g/dL (12.0-16.0); Mean Corpuscular HGB CONC 34.3 g/dL (32.0-36.0); Mean Corpuscular Hemoglobin 29.9 pg (27.0-31.0); Mean Corpuscular Volume 86.9 fL (78.0-98.0); Mean Platelet Volume 8.2 fL (7.4-10.4); Platelet Count 303 thou/uL (130-400); Red Blood Cell (RBC) Count 4.58 mill/uL (4.20-5.40); White Blood Cell (WBC) Count 14.4 thou/uL (4.8-10.8)
--- NOTE | 2019-02-18 22:45 | CT ---
CT of abdomen and pelvis: 02/18/2019 COMPARISON: 10/16/2018 HISTORY: Left lower quadrant pain TECHNIQUE: Axial CT imaging at 5 mm intervals from lung bases through pubic symphysis with IV and ora l contrast. Coronal reformatted imaging obtained. FINDINGS: The imaged lung bases are unremarkable. No free intraperitoneal air. Cholecystectomy clips are present. The liver, pancreas, spleen, adrenal glands, and right kidney are unremarkable. There is hydronephrosis on the left with a delayed nephrogram. There is hydroureter on the left as well, evidence of left-sided obstructive uropathy. There is an obstructing stone withi n the distal left ureter, best seen on axial image 69, measuring approximately 4 mm. There is a gastric suture line present. No evidence for bowel obstruction or bowel inflammatory ortiz e. The vascular structures of the abdomen/pelvis appear patent. No abdominal or pelvic lymphadenopathy is seen. Posterior postoperative fusion hardware is present at the lumbosacral junction. There is prominent fa cet hypertrophy bilaterally at the lumbosacral junction and there is 1 cm of anterolisthesis. No acute osseous abnormality is noted. IMPRESSION: Obstructive uropathy on the left secondary to a 4 mm distal obstructing left ureteral sto ne. Additional incidental findings as above.
[2019-02-18] MEDS ORDERED: Ketorolac Tromethamine 30 MG/ML VIAL ONE (22:50)
== END 2019-02-18 23:57 | disposition home or self-care (01) ==
LOC: ERS 20:56
DX: N13.2 Hydronephrosis with renal and ureteral calculous obstruction (principal); E03.9 Hypothyroidism, unspecified; E78.5 Hyperlipidemia, unspecified; F41.9 Anxiety disorder, unspecified; F31.9 Bipolar disorder, unspecified; F43.10 Post-traumatic stress disorder, unspecified; F17.210 Nicotine dependence, cigarettes, uncomplicated
CPT/HCPCS: 36415; 74177; 80053; 81003; 81015; 83690; 85025; 96374; 96375; 96376; J1885; J2270; J2405; Q9966; Q9967

== ENCOUNTER 2019-02-21 23:55 | Emergency (ER) | payer OTHER ==
[2019-02-22 00:33] LABS: Bilirubin Small (Negative); Blood, Urine Large (Negative); Clarity Clear (Clear); Glucose, Urine (Dipstick) Negative (Negative); Leukocyte Negative (Negative); Nitrite Negative (Negative); Protein, Urine (Dipstick) 30 mg/dL (Neg-Trace); Urobilinogen 0.2 mg/dL (Less than 2)
[2019-02-22 00:35] LABS: Bacteria/HPF None Seen HPF (None Seen); Renal Epithelial None Seen HPF (None Seen); Squamous Epithelial None Seen HPF (0-3); Transitional Epithelial None Seen HPF (None Seen); Trichomonas/HPF None Seen HPF (None Seen); WBC/HPF 0-3 HPF (0-3); Yeast-Budding None Seen HPF (None Seen); Yeast-Hyphae None Seen HPF (None Seen)
[2019-02-22] MEDS ORDERED: Ketorolac Tromethamine 30 MG/ML VIAL ONE (00:35)
[2019-02-22 00:36] LABS: Other Microscopic Description Less than 2 mL rec'd
[2019-02-22 00:49] LABS: Pregnancy Test - Urine (BHCG) Negative (Negative)
[2019-02-22 00:50] LABS: Pregu Control Background? CLEAR/WHITE (CLR/WHITE); Pregu Control Bar Appear? YES (CONTROL BAR); Specific Gravity 1.037 (1.002-1.036)
[2019-02-22] MEDS ORDERED: Ondansetron PF 4 MG/2 ML Vial ONE (00:51)
[2019-02-22 01:06] LABS: Anion Gap 11 mmol/L (10-20); BUN (Urea Nitrogen) 15 mg/dL (7.0-18.7); Calc. Creatinine Clearance 0 mL/min (70-130); Calcium 9.2 mg/dL (7.8-10.44); Carbon Dioxide 22 mmol/L (22-29); Chloride 107 mmol/L (98-107); Estimated GFR-MDRD 84; Glucose 93 mg/dL (70-105); Potassium 3.9 mmol/L (3.5-5.1); Sodium 136 mmol/L (136-145)
== END 2019-02-22 02:36 | disposition home or self-care (01) ==
LOC: ERS 23:55
DX: N23 Unspecified renal colic (principal); E03.9 Hypothyroidism, unspecified; E78.5 Hyperlipidemia, unspecified; F32.9 Major depressive disorder, single episode, unspecified; F41.9 Anxiety disorder, unspecified; F17.210 Nicotine dependence, cigarettes, uncomplicated; F43.10 Post-traumatic stress disorder, unspecified; Z79.899 Other long term (current) drug therapy
CPT/HCPCS: 36415; 80048; 81003; 81015; 81025; 96374; 96375; J1885; J2405

== ENCOUNTER 2019-03-05 17:40 | Emergency (ER) | payer OTHER ==
[2019-03-05 18:05] LABS: #Eosinphils 0.1 thou/uL (0.0-0.7); #Monocytes 0.6 thou/uL (0.11-0.59); #Neutrophils 7.4 thou/uL (1.40-6.50); %Basophils 0.2 % (0.0-1.0); %Eosinophils 0.8 % (0.0-10.0); %Lymphocytes 20.1 % (21.0-51.0); %Monocytes 5.8 % (0.0-10.0); %Neutrophils 73.2 % (42.0-75.0); Hemoglobin 12.4 g/dL (12.0-16.0); Mean Corpuscular HGB CONC 33.9 g/dL (32.0-36.0); Mean Corpuscular Hemoglobin 30.3 pg (27.0-31.0); Mean Corpuscular Volume 89.3 fL (78.0-98.0); Mean Platelet Volume 7.7 fL (7.4-10.4); Platelet Count 271 thou/uL (130-400); RBC Distribution Width 12.9 % (11.5-14.5); Red Blood Cell (RBC) Count 4.08 mill/uL (4.20-5.40); White Blood Cell (WBC) Count 10.2 thou/uL (4.8-10.8)
[2019-03-05 18:25] LABS: ALT (SGPT) 19 U/L (8-55); AST (SGOT) 18 U/L (5-34); Albumin 3.4 g/dL (3.5-5.0); Alkaline Phosphatase 138 U/L (40-110); Anion Gap 10 mmol/L (10-20); BUN (Urea Nitrogen) 11 mg/dL (7.0-18.7); Bilirubin, Total 0.4 mg/dL (0.2-1.2); Calc. Creatinine Clearance 0 mL/min (70-130); Calcium 8.4 mg/dL (7.8-10.44); Carbon Dioxide 24 mmol/L (22-29); Chloride 107 mmol/L (98-107); Estimated GFR-MDRD 65; Globulin 2.3 g/dL (2.4-3.5); Glucose 95 mg/dL (70-105); Lipase 14 U/L (8-78); Potassium 4.4 mmol/L (3.5-5.1); Protein, Total 5.7 g/dL (6.0-8.3); Sodium 137 mmol/L (136-145)
[2019-03-05 18:28] LABS: Bilirubin Negative (Negative); Blood, Urine Negative (Negative); Clarity Clear (Clear); Glucose, Urine (Dipstick) Normal (Negative); Leukocyte 250 Leu/uL (Negative); Mucous/LPF Rare LPF (<2+); Nitrite Negative (Negative); Protein, Urine (Dipstick) 30 mg/dL (Neg-Trace)
[2019-03-05 18:29] LABS: Pregnancy Test - Urine (BHCG) Negative (Negative); Pregu Control Background? CLEAR/WHITE (CLR/WHITE); Pregu Control Bar Appear? YES (CONTROL BAR); Specific Gravity 1.028 (1.002-1.036)
[2019-03-05 18:36] LABS: Bacteria/HPF Rare-Few HPF (None Seen)
[2019-03-05] MEDS ORDERED: Ketorolac Tromethamine 30 MG/ML VIAL ONE (19:05)
--- NOTE | 2019-03-05 20:34 | CT ---
CT ABDOMEN AND PELVIS WITHOUT IV CONTRAST: Indications: Left flank pain. FINDINGS: Lung bases are clear. Mild stranding in the posterior lung bases. Liver, spleen, and pancreas unremarkable. Post cholecystectomy change. There are surgical changes inv olving the stomach suggesting gastric bypass type procedure. There is mild left hydronephrosis. Mild columning of the left ureter. There is an obstructing calculu s at the left UVJ which measures approximately 5 mm greatest dimension. This has somewhat of an oblon g configuration. The urinary bladder is contracted. Right collecting structures unremarkable. Bowel loops unremarkable. Uterus and adnexa unremarkable. IMPRESSION: Obstructing calculus left UVJ. POS: OFF
== END 2019-03-05 20:15 | disposition home or self-care (01) ==
LOC: ERS 17:40
DX: N13.2 Hydronephrosis with renal and ureteral calculous obstruction (principal); E03.9 Hypothyroidism, unspecified; E78.5 Hyperlipidemia, unspecified; F41.9 Anxiety disorder, unspecified; F32.9 Major depressive disorder, single episode, unspecified; F43.10 Post-traumatic stress disorder, unspecified; F17.220 Nicotine dependence, chewing tobacco, uncomplicated; Z79.899 Other long term (current) drug therapy
CPT/HCPCS: 36415; 74176; 80053; 81003; 81015; 81025; 83690; 85025; 87086; 94760; 96361; 96374; J1885

== ENCOUNTER 2019-03-11 08:19 | Day surgery (SDC) | payer MEDICARE ==
[~2019-03-11 08:19] MED LIST changes: +Cosyntropin 250 MCG VIAL SLOW IVP SCH; -ISOVUE-370 76%-LOCM 1 ML ONE; -Iopamidol 370 76% 50 ML VIAL FS ONE
[2019-03-11] MEDS ORDERED: Cosyntropin 250 MCG VIAL SLOW IVP SCH (08:30)
== END 2019-03-11 10:22 | disposition home or self-care (01) ==
LOC: ONC/OP 08:19
PROVIDERS: ATTEND Specialist
DX: R53.82 Chronic fatigue, unspecified (principal); M62.81 Muscle weakness (generalized)
CPT/HCPCS: 36415; 80400; 82024; 96374; J0834

== ENCOUNTER 2021-03-12 12:35 | Outpatient (CLI) | payer MEDICARE, OTHER | END 2021-03-12 12:36 | disposition home or self-care (01) | LOC: ULT 12:35 | PROVIDERS: ATTEND Internal Medicine | DX: D28.2 Benign neoplasm of uterine tubes and ligaments (principal) | CPT/HCPCS: 76856 ==

== ENCOUNTER 2021-04-07 08:41 | Outpatient (CLI) | payer OTHER ==
[2021-04-07] MEDS ORDERED: Magnevist 469MG/ML 20 ML VIAL ONE (10:48)
== END 2021-04-07 08:42 | disposition home or self-care (01) ==
LOC: MRI 08:41
PROVIDERS: ATTEND Internal Medicine
DX: R93.41 Abnormal radiologic findings on diagnostic imaging of renal pelvis, ureter, or bladder (principal); Q51.28 Other and unspecified doubling of uterus
CPT/HCPCS: 72197

== ENCOUNTER 2021-12-06 18:54 | Emergency (ER) | payer MEDICARE, OTHER ==
[2021-12-06] MEDS ORDERED: HYDROcodone/Acetaminophen 5/325 mg Tablet ONE (19:27)
[2021-12-06 19:57] LABS: Bilirubin Negative (Negative); Blood, Urine Negative (Negative); Calcium Oxalate Crystals Rare HPF (None Seen); Clarity Clear (Clear); Glucose, Urine (Dipstick) Normal (Negative); Ketone, Urine Trace mg/dL (Negative); Leukocyte Negative Leu/uL (Negative); Mucous/LPF 1+ LPF (<2+); Nitrite Negative (Negative); Protein, Urine (Dipstick) 70 mg/dL (Neg-Trace); Specific Gravity, Urine 1.041 (1.002-1.036); Squamous Epithelial 0-3 HPF (0-3); WBC/HPF 0-3 HPF (0-3)
[2021-12-06 20:03] LABS: Pregnancy Test - Urine (BHCG) Negative (Negative); Pregu Control Background? CLEAR/WHITE (CLR/WHITE); Pregu Control Bar Appear? YES (CONTROL BAR); Specific Gravity 1.041 (1.002-1.036)
[2021-12-06 20:11] LABS: Bacteria/HPF 1+ HPF (None Seen)
[2021-12-06] MEDS ORDERED: Ketorolac Tromethamine 30 MG/ML VIAL ONE (20:44)
== END 2021-12-06 20:53 | disposition home or self-care (01) ==
LOC: ERS 18:54
DX: R10.31 Right lower quadrant pain (principal); E03.9 Hypothyroidism, unspecified; F17.210 Nicotine dependence, cigarettes, uncomplicated; Z79.899 Other long term (current) drug therapy
CPT/HCPCS: 76856; 81003; 81015; 81025; 96374; J1885

== ENCOUNTER 2022-07-15 08:19 | Outpatient (CLI) | payer OTHER ==
[2022-07-15] MEDS ORDERED: Iopamidol-370 76% 500 ML 1 ML ONE (09:00)
== END 2022-07-15 08:20 | disposition home or self-care (01) ==
LOC: BICCT 08:19
PROVIDERS: ATTEND Physician Assistant Medical
DX: R10.13 Epigastric pain (principal); R14.0 Abdominal distension (gaseous)
CPT/HCPCS: 74177; Q9967